=== PATIENT | female | born 1980 | race Caucasian/White ===

== ENCOUNTER 2016-06-08 19:14 | Emergency (ER) | payer MEDICAID | END 2016-06-08 22:08 | disposition home or self-care (01) | LOC: D.ER 19:14 | DX: L53.8 Other specified erythematous conditions (principal); I10 Essential (primary) hypertension ==

== ENCOUNTER 2016-07-31 02:20 | Emergency (ER) | payer MEDICAID | END 2016-07-31 03:12 | disposition home or self-care (01) | LOC: D.ER 02:20 | DX: T78.40XA Allergy, unspecified, initial encounter (principal); X58.XXXA Exposure to other specified factors, initial encounter; I10 Essential (primary) hypertension; F15.10 Other stimulant abuse, uncomplicated; F17.200 Nicotine dependence, unspecified, uncomplicated ==

== ENCOUNTER 2016-09-13 23:02 | Emergency (ER) | payer MEDICAID | END 2016-09-14 01:52 | disposition home or self-care (01) | LOC: D.ER 23:02 | DX: S81.811A Laceration without foreign body, right lower leg, initial encounter (principal); W45.8XXA Other foreign body or object entering through skin, initial encounter; Y93.89 Activity, other specified; Y92.512 Supermarket, store or market as the place of occurrence of the external cause; F17.200 Nicotine dependence, unspecified, uncomplicated; I10 Essential (primary) hypertension ==

== ENCOUNTER 2017-03-12 11:17 | Emergency (ER) | payer MEDICAID | END 2017-03-12 12:19 | disposition home or self-care (01) | LOC: D.ER 11:17 | DX: R56.9 Unspecified convulsions (principal); F17.200 Nicotine dependence, unspecified, uncomplicated ==

== ENCOUNTER 2017-05-02 16:03 | Emergency (ER) | payer MEDICAID | END 2017-05-02 17:58 | disposition home or self-care (01) | LOC: D.ER 16:03 | DX: L02.811 Cutaneous abscess of head [any part, except face] (principal); F41.9 Anxiety disorder, unspecified; I10 Essential (primary) hypertension ==

== ENCOUNTER 2017-08-30 19:29 | Emergency (ER) | payer MEDICAID | END 2017-08-30 20:28 | disposition home or self-care (01) | LOC: D.ER 19:29 | DX: S29.012A Strain of muscle and tendon of back wall of thorax, initial encounter (principal); X58.XXXA Exposure to other specified factors, initial encounter; Y93.89 Activity, other specified; Y92.019 Unspecified place in single-family (private) house as the place of occurrence of the external cause; M62.838 Other muscle spasm; I10 Essential (primary) hypertension ==

== ENCOUNTER 2017-09-11 11:55 | Emergency (ER) | payer MEDICAID | END 2017-09-11 13:10 | disposition home or self-care (01) | LOC: D.ER 11:55 | DX: M54.5 Low back pain (principal); G62.9 Polyneuropathy, unspecified ==

== ENCOUNTER 2018-07-02 11:29 | Emergency (ER) | payer MEDICAID ==
[~2018-07-02] VITALS: Ht 170.2 cm; Wt 87.3 kg
[2018-07-02 11:45] VITALS: Ht 170.2 cm; Wt 87.3 kg
[2018-07-02] MEDS ORDERED: CLOTRIMAZOLE-BE30 ML TOPICAL (13:25)
[2018-07-02 13:50] VITALS: BP 166/92
== END 2018-07-02 13:52 | disposition home or self-care (01) ==
LOC: D.ER 11:29
DX: R21 Rash and other nonspecific skin eruption (principal); G40.909 Epilepsy, unspecified, not intractable, without status epilepticus; I10 Essential (primary) hypertension; F42.9 Obsessive-compulsive disorder, unspecified

== ENCOUNTER 2018-08-10 14:32 | Emergency (ER) | payer MEDICAID ==
[~2018-08-10] VITALS: Ht 170.2 cm; Wt 86.4 kg
[~2018-08-10 14:32] MED LIST: CLOTRIMAZOLE-BE30 ML TOPICAL
[2018-08-10 14:39] VITALS: BP 192/95; Ht 170.2 cm; Wt 86.4 kg
[2018-08-10] MEDS ORDERED: VERELAN180 MG PO (14:47)
[2018-08-10] MEDS ORDERED: GEODON20 MG PO (14:48)
[2018-08-10] MEDS ORDERED: CATAPRES0.1 MG PO (14:48)
[2018-08-10] MEDS ORDERED: LIORESAL 10 MG10 MG PO (14:48)
[2018-08-10 15:25] LABS: BASOPHILS 0.2 % (0-2); EOSINOPHILS 5.1 % (0-7); HEMATOCRIT 42.6 % (36.0-48.0); HEMOGLOBIN 14.7 g/dL (12-16); IMMATURE GRANULOCYTES 0.2 % (0-5); LYMPHOCYTES 24.5 % (15-50); MCH 31.7 pg (26.0-34.0); MCHC 34.5 g/dL (31.0-37.0); MEAN PLATELET VOLUME 10.8 fL (7.4-10.4); MONOCYTES 9.7 % (2-11); NEUTROPHILS 60.3 % (40-80); RBC 4.63 10x6/uL (4.00-5.40); RDW 13.2 % (11.5-14.5); WBC 8.2 10x3/uL (4.8-10.8)
[2018-08-10 15:26] LABS: PLATELET COUNT 340 10x3/uL (130-400)
[2018-08-10 15:43] LABS: ALBUMIN 3.3 g/dL (3.4-5.0); ALKALINE PHOSPHATASE 94 U/L (46-116); ALT (SGPT) 72 U/L (10-68); BILIRUBIN - TOTAL 0.19 mg/dL (0.2-1.3); CALC OSMOLALITY 278 mosm/kg (275-300); CALCIUM 8.4 mg/dL (8.5-10.1); CHLORIDE - SERUM 108 mmol/L (98-107); CREATININE - SERUM 0.6 mg/dL (0.6-1.3); GLUCOSE 89 mg/dL (74-106); MAGNESIUM - SERUM 1.9 mg/dL (1.8-2.4); POTASSIUM - SERUM 3.6 mmol/L (3.5-5.1); PROTEIN - SERUM 6.9 g/dL (6.4-8.2); SODIUM 142 mmol/L (136-145); UREA NITROGEN 5 mg/dL (7-18); eGFR NON AFRICAN AMERICAN > 90 mL/min (90-120)
[2018-08-10 15:56] LABS: APPEARANCE CLEAR (CLEAR); BILIRUBIN NEGATIVE (NEGATIVE); COLOR YELLOW (YELLOW); GLUCOSE NEGATIVE (NEGATIVE); KETONE NEGATIVE (NEGATIVE); NITRITE NEGATIVE (NEGATIVE); PROTEIN NEGATIVE (NEGATIVE); UROBILINOGEN NORMAL (NORMAL)
[2018-08-10 15:59] LABS: RED CELLS - URINE 0-5 /hpf (0-5); WHITE CELLS - URINE 0-5 /hpf (0-5)
[2018-08-10 16:00] LABS: BACTERIA MODERATE /hpf (NONE SEEN)
[2018-08-10 16:01] LABS: UDS - AMPHET POSITIVE QUAL (NEGATIVE); UDS - BARB NEGATIVE QUAL (NEGATIVE); UDS - BENZO NEGATIVE QUAL (NEGATIVE); UDS - COCAINE NEGATIVE QUAL (NEGATIVE); UDS - OPIATE NEGATIVE QUAL (NEGATIVE); UDS - PCP NEGATIVE QUAL (NEGATIVE); UDS - THC POSITIVE QUAL (NEGATIVE)
[2018-08-10 16:34] LABS: APTT 30.6 SECONDS (22.8-39.4); INR 0.99 (0.85-1.17); PROTIME 12.6 SECONDS (11.6-15.0)
== END 2018-08-10 21:04 | disposition other institution (70) ==
LOC: D.ER 14:32
PROVIDERS: Family Medicine
DX: R47.01 Aphasia (principal); R47.1 Dysarthria and anarthria